=== PATIENT | female | born 1990 | race Caucasian/White ===

== ENCOUNTER 2017-06-01 17:39 | Inpatient (IN) | payer MEDICARE, MEDICAID ==
[2017-06-01] MEDS ORDERED: Dextrose 50% SYRINGE Inj (50 ml) ONE ×4 (18:00→21:49)
[2017-06-01] MEDS ORDERED: Dextrose 50% SYRINGE Inj (50 ml) IVP STA (18:10)
[2017-06-01] MEDS ORDERED: Dextrose 5%/0.33% NS 1,000 ML IV ONE (18:14)
[2017-06-01 18:29] LABS: BASO % 0.1 % (0.0-2.0); HEMATOCRIT 33.9 % (34.0-47.0); LYMPH # 1.3 K/uL (1.0-4.3); LYMPH % 5.9 % (20.0-40.0); MEAN CELL VOLUME 75.6 fL (81.0-99.0); MEAN CORPUSCULAR HEMOGLOBIN 23.4 pg (27.0-31.0); MEAN CORPUSCULAR HGB CONC 30.9 g/dL (33.0-37.0); MEAN PLATELET VOLUME 8.4 fL (7.2-11.7); MONO # 1.1 K/uL (0.0-0.8); MONO % 5.1 % (0.0-10.0); PLATELET COUNT 354 K/uL (130-400); RED CELL DISTRIBUTION WIDTH 17.2 % (11.5-14.5); WHITE BLOOD COUNT 21.6 K/uL (4.8-10.8)
--- NOTE | 2017-06-01 18:37 | C.PDOC ---
History Of Present Illness 26 year old female with a history of diabetes and schizophrenia was brought to the ED by EMS after apparent suicide attempt prior to arrival. Patient was found unconscious by brother and a suicide note was written addressed to mother. Upon EMS arrival, patient's sugar was checked and found to be very low. Patient was given amp of D50 by EMS, blood pressure remained low and second amp of D50 was given. Bilateral nasal trumpets were inserted by EMS and patient is tolerating. Mother notes patient has had multiple suicide attempts in the past and follows up with [facility] [place]. ROS limited due to patient's clinical condition. Time Seen by Provider: 06/01/17 17:53 Chief Complaint (Nursing): Psychiatric Evaluation History Per: EMS, Family (brother and brother ) History/Exam Limitations: no limitations Onset/Duration Of Symptoms: Hrs Current Symptoms Are (Timing): Still Present Suicide/Self Injury Attempted (Context): Ingestion, Other (mother notes history of attempts but did not specify method ) Past Medical History Vital Signs: Last Vital Signs Temp 98.8 F 06/01/17 18:13 Pulse 110 H 06/01/17 18:13 Resp 20 06/01/17 18:13 BP 108/59 L 06/01/17 18:13 Pulse Ox 96 06/01/17 19:02 - Medical History PMH: Anxiety, Depression, HTN, Schizophrenia Family History: States: No Known Family Hx - Social History Hx Alcohol Use: No Hx Substance Use: No Review Of Systems Review Of Systems: ROS cannot be obtained secondary to pt's inabilty to answer questions. (patient is not answering question) Physical Exam - Physical Exam Appears: Non-toxic, No Acute Distress, Other (Patient is responsive to noxious stimuli only. She is not answering questions but does withdraw in pain. ) Skin: Warm, Dry Head: Atraumatic, Normacephalic Eye(s): bilateral: PERRL, Other (conjunctiva injection ) Oral Mucosa: Moist Neck: Supple Chest: Symmetrical, No Deformity Cardiovascular: Rhythm Regular, No Murmur Respiratory: Normal Breath Sounds, No Rales, No Rhonchi, No Wheezing, Other ( Patient has bilateral nasal trumpets in place from EMS placement ) Gastrointestinal/Abdominal: Soft, No Tenderness, No Distention, No Guarding, No Rebound, Other (abdomen obese ) ED Course And Treatment - Laboratory Results Result Diagrams: 06/01/17 18:18 ECG: Interpreted By Me, Viewed By Me O2 Sat by Pulse Oximetry: 96 (room air ) Progress Note: EKG, UA, and blood work were ordered. Patient was given dextrose and D5NS. Pending ICU re-evaluation. Disposition - Disposition Disposition: HOSPITALIZED Disposition Time: 19:03 Condition: SERIOUS - Clinical Impression Clinical Impression: Suicidal intent, Hypoglycemia, Schizophrenia - Scribe Statement The provider has reviewed the documentation as recorded by the Scribe Sophie Villa All medical record entries made by the Scribe were at my direction and personally dictated by me. I have reviewed the chart and agree that the record accurately reflects my personal performance of the history, physical exam, medical decision making, and the department course for this patient. I have also personally directed, reviewed, and agree with the discharge instructions and disposition. Decision To Admit - Pt Status Changed To: Hospital Disposition Of: Inpatient - Admit Certification Admit to Inpatient:: After my assessment, the patient will require hospitalization for at least two midnights. This is because of the severity of symptoms shown, intensity of services needed, and/or the medical risk in this patient being treated as an outpatient. - InPatient: Physician Admission Certification: I certify that this patient requires 2 or more midnights of care for the following reason:: insuline OD - . Bed Request Type: ICU Admitting Physician: Nabeel Neumann Patient Diagnosis: Suicidal intent, Hypoglycemia, Schizophrenia
[2017-06-01 18:41] LABS: CHLORIDE 105 mmol/L (98-107); URINE BILIRUBIN NEGATIVE (NEGATIVE); URINE BLOOD NEGATIVE (NEGATIVE); URINE COLOR Straw (YELLOW); URINE GLUCOSE (UA) 1+ mg/dL (Normal); URINE KETONE NEGATIVE (NEGATIVE); URINE LEUKOCYTE ESTERASE NEG Leu/uL (Negative); URINE PROTEIN NEGATIVE (NEGATIVE); URINE UROBILINOGEN NORMAL mg/dL (0.2-1.0)
[2017-06-01 18:42] LABS: POTASSIUM 2.9 mmol/L (3.6-5.2); SODIUM 139 mmol/L (132-148)
[2017-06-01 18:44] LABS: GFR AFRICAN-AMERICAN > 60
[2017-06-01 18:45] LABS: ALB/GLOB RATIO 1.6 (1.0-2.1); ALKALINE PHOSPHATASE 63 U/L (38-126); ALT/SGPT 16 U/L (9-52); AST/SGOT 30 U/L (14-36); BILIRUBIN,TOTAL 0.6 mg/dL (0.2-1.3); BLOOD UREA NITROGEN 10 mg/dL (7-17); CALCIUM 9.7 mg/dl (8.6-10.4); CARBON DIOXIDE 22 mmol/L (22-30); GLUCOSE,RANDOM 137 mg/dL (65-105); TOTAL PROTEIN 6.7 g/dL (6.3-8.3)
[2017-06-01 18:46] LABS: ALCOHOL SERUM < 10 mg/dl (0-10)
[2017-06-01 18:59] LABS: NEUTROPHIL 89 % (50-75); TOTAL CELLS COUNTED 100
[2017-06-01 19:01] LABS: LARGE PLATELETS PRESENT
[2017-06-01] MEDS ORDERED: Dextrose 50% SYRINGE Inj (50 ml) IV STA ×3 (19:09→21:48)
[2017-06-01] MEDS ORDERED: POTASSIUM CHLORIDE IV SCH ×2 (21:05→21:49)
[2017-06-01] MEDS ORDERED: DEXTROSE 10% IV SCH ×2 (21:05→21:49)
[2017-06-01] MEDS ORDERED: WATER IV SCH ×2 (21:05→21:49)
--- NOTE | 2017-06-01 21:27 | CP.PCM.CON ---
History of Present Illness - History of Present Illness History of Present Illness: 26 F brought in ER as found in by family around 5:30 pm lethargic, with suicidal note, patient was hypoglycemic in the field, has taken insulin in the past and multiple suicidal attempts and usually [place] [facility] In [place] frequent episode of hypoglycemia needing d50 despite being on d5 drip. Patient at time of eval fsbs was 39mg/dl was arousable with sternal rub, post d50 1 amp, patient would open eyes upon calling her name but would not tell how much insulin and at what johanna was taken, and any thing else consumed. Urine tox negative, qt is prolonged to 499ms, potassium 2.9. Mother present at bedside was providing information above and beneath. PMH as above schizophrenia, suicidal attempts, iddm PSH none Meds still need to confirm type of insulin Allergies NKDA Family history not contributory Review of Systems - Review of Systems Systems not reviewed;Unavailable: Altered Mental Status All systems: reviewed and no additional remarkable complaints except (HPI) Past Patient History - Past Social History Smoking Status: Light Smoker < 10 Cigarettes Daily Alcohol: None (as per mother) Drugs: Denies (as pre mother) Home Situation {Lives}: With Family - CARDIAC Hx Hypertension: Yes - ENDOCRINE/METABOLIC Hx Diabetes Mellitus Type 2: Yes - PSYCHIATRIC Hx Anxiety: Yes Hx Depression: Yes Hx Schizophrenia: Yes Hx Substance Use: No Meds Allergies/Adverse Reactions: Allergies Allergy/AdvReac Type Severity Reaction Status Date / Time Unobtainable Allergy Verified 06/01/17 17:46 - Medications Medications: Current Medications Heparin Sodium (Porcine) (Heparin) 5,000 units SC Q8 STEPHANIE Dextrose/Sodium Chloride (Dextrose 5%/0.33% Ns 1000 Ml) 1,000 mls @ 100 mls/hr IV .Q10H ONE Stop: 06/02/17 04:13 Last Admin: 06/01/17 18:44 Dose: 100 mls/hr Potassium Chloride 50 meq/ (Dextrose) 1,025 mls @ 100 mls/hr IV .[id number] STEPHANIE Pantoprazole Sodium (Protonix Inj) 40 mg IVP DAILY STEPHANIE Physical Exam - Additional Findings Additional findings: * HEENT TIFFANIE, but low reacting b/l * Neck Supple * Chest Clear b/l * CVS regular, no gallop or rub * PA soft nt, bs present, slight suprapubic fullness * Ext no edema * [employer] arousable but lethargic, especially when glucose low, but talks briefly when glucose improve, so clinically not in seizure or post ictal at time of assessment. * Skin normal turgor * Results - Vital Signs Recent Vital Signs: Last Vital Signs Temp 98.8 F 06/01/17 18:13 Pulse 85 06/01/17 20:21 Resp 18 06/01/17 20:21 BP 101/48 L 06/01/17 20:21 Pulse Ox 98 06/01/17 20:21 - Labs Result Diagrams: 06/01/17 18:18 06/01/17 18:18 Labs: Laboratory Results - last 24 hr 06/01/17 06/01/17 06/01/17 19:04 19:43 20:39 POC Glucose (mg/dL) 49 L 104 153 H Assessment & Plan - Assessment and Plan (Free Text) Assessment: * Suicidal attempt by taking insulin with hypoglycemia, supplemental glucose being adjusted, lethargic but maintaining airway, not post ictal at time of current eval. * Hypokalemia due to insulin, potassium will be supplemented, will check mag levels * Prolonged qt due to above * H/o prior suicidal attempts in similar way, h/o schizophrenia Plan: * Maintain euglycemia, spo2 above 90% * supplement and maintain electrolytes * Aspiration/seizure precautions * 1:1 observation * Psych eval one more awake * GI/DVT prophylaxis * See orders for detail.
[2017-06-01] MEDS: Magnesium Sulfate 1 gm in D5W 1 GM/100 ML BAG IVPB SCH (23:55)
[2017-06-02] MEDS: Magnesium Sulfate 1 gm in D5W 1 GM/100 ML BAG IVPB SCH (00:15)
[2017-06-02] MEDS: Potassium Chloride 20 mEq ER Tab PO SCH ×2 (01:12→05:15)
[2017-06-02 05:55] LABS: BASO % 0.2 % (0.0-2.0); EOS % 0.1 % (0.0-4.0); HEMATOCRIT 35.4 % (34.0-47.0); LYMPH # 1.9 K/uL (1.0-4.3); LYMPH % 9.5 % (20.0-40.0); MEAN CELL VOLUME 75.8 fL (81.0-99.0); MEAN CORPUSCULAR HEMOGLOBIN 23.6 pg (27.0-31.0); MEAN CORPUSCULAR HGB CONC 31.2 g/dL (33.0-37.0); MEAN PLATELET VOLUME 8.4 fL (7.2-11.7); PLATELET COUNT 339 K/uL (130-400); RED CELL DISTRIBUTION WIDTH 17.8 % (11.5-14.5); WHITE BLOOD COUNT 20.2 K/uL (4.8-10.8)
[2017-06-02 06:17] LABS: ALB/GLOB RATIO 1.4 (1.0-2.1); ALKALINE PHOSPHATASE 61 U/L (38-126); ALT/SGPT 21 U/L (9-52); AST/SGOT 28 U/L (14-36); BILIRUBIN,TOTAL 0.5 mg/dL (0.2-1.3); BLOOD UREA NITROGEN 6 mg/dL (7-17); CARBON DIOXIDE 22 mmol/L (22-30); CHLORIDE 102 mmol/L (98-107); GFR AFRICAN-AMERICAN > 60; GLUCOSE,RANDOM 206 mg/dL (65-105); MAGNESIUM 1.9 mg/dL (1.6-2.3); POTASSIUM 4.2 mmol/L (3.6-5.2); SODIUM 136 mmol/L (132-148); TOTAL PROTEIN 6.2 g/dL (6.3-8.3)
[2017-06-02 09:50] LABS: TOTAL CELLS COUNTED 100
[2017-06-02 09:51] LABS: NEUTROPHIL 85 % (50-75)
[2017-06-02 09:53] LABS: LARGE PLATELETS PRESENT
--- NOTE | 2017-06-02 13:24 | PCM.PSYCH ---
Initial Psychiatric Evaluation - Initial Psychiatric Evaluation Type of Admission: Voluntary Legal Status: Capacity Chief Complaint (in patient's own words): I tried to kill myself. History of Present Illness and Precipitating Events: Patient is a 26 years old [place] female, who is unemployed and lives with parents, with a long history of schizophrenia, was escorted to the ED after a suicidal attempt. Patient was found unconscious by brother and a suicide note was written addressed to mother. Upon EMS arrival, patient's sugar was checked and found to be very low. Patient was given amp of D50 by EMS, blood pressure remained low and second amp of D50 was given. After coming to consciousness patient admitted that she injected insulin to kill herself. Patient reports History of schizophrenia, and reports that she was recently [place] [facility]. She is partially compliant with her medications. She remained disheveled, paranoid and superficially cooperative. She reports depressed mood, and poor sleep. However she remained guarded about further details and demanded to be discharged. Patient refused to answer any further questions and demanded to be discharged. However she denies any drinking or any substance abuse. Past medical history DM Current Medications: Active Medications Generic Name Dose Route Start Last Admin Trade Name Freq PRN Reason Stop Dose Admin Heparin Sodium (Porcine) 5,000 units 06/01/17 22:00 06/02/17 06:01 Heparin SC 5,000 units Q8 STEPHANIE Administration Dextrose 1,000 mls @ 60 mls/hr 06/02/17 09:09 06/02/17 09:26 Dextrose 10% In Water IV 60 mls/hr .[id number] STEPHANIE Administration Pantoprazole Sodium 40 mg 06/02/17 10:00 06/02/17 09:27 Protonix Inj IVP 40 mg DAILY STEPHANIE Administration Past Psychiatric History - Past Psychiatric History Previous Treatment History: Inpatient Pertinent Medical Hx (Current Medical&Sleep Prob, Allergies): Allergies Allergy/AdvReac Type Severity Reaction Status Date / Time Unobtainable Allergy Verified 06/01/17 17:46 Benztropine [Benztropine Mesylate] 2 mg PO BID 06/01/17 Citalopram Hydrobromide [Citalopram HBr] 40 mg PO DAILY 06/01/17 Clonazepam [Klonopin] 1 mg PO PRN PRN 06/01/17 Lisinopril 2.5 mg PO DAILY 06/01/17 Metformin HCl [Metformin HCl ER] 1,000 mg PO BID 06/01/17 Omeprazole 40 mg PO DAILY 06/01/17 Perphenazine 4 mg PO DAILY 06/01/17 Quetiapine Fumarate 400 mg PO HS 06/01/17 Review of Systems - Review of Systems All systems: reviewed and no additional remarkable complaints except - Psychiatric Psychiatric: Anxiety, Irritability Mental Status Examination - Personal Presentation Personal Presentation: Looks stated age - Affect Affect: Constricted, Blunted - Motor Activity Motor Activity: Psychomotor Retardation - Reliability in Providing Information Reliability in Providing Information: Poor, due to alteration in thoughts, Poor , due to altered mood - Speech Speech: Organized - Mood Mood: Depressed, Anxious - Obsessions/Compulsions Obsessions: No Compulsions: No - Cognitive Functions Orientation: Person, Place, Situation, Time Sensorium: Alert Attention/Concentration: Attentive Abstract Thinking: Dawes Estimate of Intelligence: Below average Judgement: Imparied, as evidence by: Poor judgement, Imparied, as evidence by: Lack of insight into illness - Risk Risk: Suicidal, Diminished functioning - Strength & Assets Inventory Strength & Assets Inventory: Family support DSM 5 DX - DSM 5 DSM 5 Diagnosis: schizoaffective disorder depressed type - Recommended/Plan of Treatment Treatment Recommendations and Plan of Treatment: Schizoaffective disorder depressed type continue patient's medications Perphenazine 4 mg PO QDaily Celexa 40 mg PO Daily Seroquel 400 mg po QHS called [facility] for [place] commitment - Smoking Cessation Smoking Cessation Initiated: No
--- NOTE | 2017-06-02 14:30 | CP.CCUPN ---
CCU Subjective - Physician Review Events Since Last Encounter (Free Text): 06/02/17 14:26 alert and oriented, feels better. CCU Objective - Vital Signs / Intake & Output Vital Signs (Last 4 hours): Vital Signs Temp Pulse Resp BP Pulse Ox 06/02/17 12:05 109 H 19 98 06/02/17 12:00 98.0 F 100 06/02/17 11:20 105 H 27 H 111/64 100 06/02/17 11:00 92 H 24 Intake and Output (Last 8hrs): Intake & Output 06/01/17 06/02/17 06/02/17 22:59 06:59 14:59 Intake Total 1970 1230 Output Total 1750 1250 1200 Balance -1750 720 30 Weight 195 lb Intake: Intake, IV Amount 1600 780 Left Antecubital 1400 780 Right Wrist 200 Oral 370 450 Output: Urine 1750 1250 1200 Urethral (Turner) 1250 1200 Stool 0 0 Emesis 0 Other: Voiding Method Indwelling Catheter # Bowel Movements 0 - Physical Exam Head: Positive for: Atraumatic, Normocephalic Pupils: Positive for: PERRL Extroacular Muscles: Positive for: EOMI Conjunctiva: Positive for: Normal Mouth: Positive for: Moist Mucous Membranes Neck: Positive for: Normal Range of Motion Respiratory/Chest: Positive for: Clear to Auscultation, Good Air Exchange. Negative for: Respiratory Distress Cardiovascular: Positive for: Regular Rate and Rhythm, Normal S1, S2. Negative for: Murmurs Abdomen: Positive for: Normal Bowel Sounds. Negative for: Tenderness, Distention Neurological: Positive for: GCS=15, CN II-XII Intact, Speech Normal Psychiatric: Positive for: Alert, Oriented x 3 - Medications Active Medications: Active Medications Generic Name Dose Route Start Last Admin Trade Name Freq PRN Reason Stop Dose Admin Benztropine Mesylate 2 mg 06/02/17 18:00 Cogentin PO BID STEPHANIE Citalopram Hydrobromide 40 mg 06/02/17 14:30 Celexa PO DAILY STEPHANIE Clonazepam 1 mg 06/02/17 18:00 Klonopin PO BID STEPHANIE Heparin Sodium (Porcine) 5,000 units 06/01/17 22:00 06/02/17 06:01 Heparin SC 5,000 units Q8 STEPHANIE Administration Dextrose 1,000 mls @ 60 mls/hr 06/02/17 09:09 09/17/17 09:26 Dextrose 10% In Water IV 60 mls/hr .[id number] STEPHANIE Administration Pantoprazole Sodium 40 mg 06/02/17 10:00 06/02/17 09:27 Protonix Inj IVP 40 mg DAILY STEPHANIE Administration Perphenazine 4 mg 06/02/17 13:30 Perphenazine PO DAILY STEPHANIE Quetiapine Fumarate 400 mg 06/02/17 22:00 Seroquel PO HS STEPHANIE - Patient Studies Lab Studies: Lab Studies 06/02/17 06/02/17 06/02/17 Range/Units 13:58 13:02 12:08 WBC (4.8-10.8) K/uL RBC (3.80-5.20) Mil/uL Hgb (11.0-16.0) g/dL Hct (34.0-47.0) % MCV (81.0-99.0) fL MCH (27.0-31.0) pg MCHC (33.0-37.0) g/dL RDW (11.5-14.5) % Plt Count (130-400) K/uL MPV (7.2-11.7) fL Neut % (Auto) (50.0-75.0) % Lymph % (Auto) (20.0-40.0) % Cochran % (Auto) (0.0-10.0) % Eos % (Auto) (0.0-4.0) % Baso % (Auto) (0.0-2.0) % Neut # (1.8-7.0) K/uL Lymph # (1.0-4.3) K/uL Cochran # (0.0-0.8) K/uL Eos # (0.0-0.7) K/uL Baso # (0.0-0.2) K/uL Neutrophils % (Manual) (50-75) % Band Neutrophils % (0-2) % Lymphocytes % (Manual) (20-40) % Monocytes % (Manual) (0-10) % Platelet Estimate (NORMAL) Large Platelets Polychromasia Hypochromasia (manual) Poikilocytosis (manual Anisocytosis (manual) Microcytosis (manual) Ovalocytes Schistocytes Sodium (132-148) mmol/L Potassium (3.6-5.2) mmol/L Chloride (98-107) mmol/L Carbon Dioxide (22-30) mmol/L Anion Gap (10-20) BUN (7-17) mg/dL Creatinine (0.7-1.2) MG/DL Est GFR ( Amer) Est GFR (Non-Af Amer) POC Glucose (mg/dL) 134 H 151 H 188 H (65-110) mg/dL Random Glucose (65-105) mg/dL Calcium (8.6-10.4) mg/dl Magnesium (1.6-2.3) mg/dL Total Bilirubin (0.2-1.3) mg/dL AST (14-36) U/L ALT (9-52) U/L Alkaline Phosphatase (38-126) U/L Total Protein (6.3-8.3) g/dL Albumin (3.5-5.0) g/dL Globulin (2.2-3.9) gm/dL Albumin/Globulin Ratio (1.0-2.1) 06/02/17 06/02/17 06/02/17 Range/Units 10:52 09:48 09:03 WBC (4.8-10.8) K/uL RBC (3.80-5.20) Mil/uL Hgb (11.0-16.0) g/dL Hct (34.0-47.0) % MCV (81.0-99.0) fL MCH (27.0-31.0) pg MCHC (33.0-37.0) g/dL RDW (11.5-14.5) % Plt Count (130-400) K/uL MPV (7.2-11.7) fL Neut % (Auto) (50.0-75.0) % Lymph % (Auto) (20.0-40.0) % Cochran % (Auto) (0.0-10.0) % Eos % (Auto) (0.0-4.0) % Baso % (Auto) (0.0-2.0) % Neut # (1.8-7.0) K/uL Lymph # (1.0-4.3) K/uL Cochran # (0.0-0.8) K/uL Eos # (0.0-0.7) K/uL Baso # (0.0-0.2) K/uL Neutrophils % (Manual) (50-75) % Band Neutrophils % (0-2) % Lymphocytes % (Manual) (20-40) % Monocytes % (Manual) (0-10) % Platelet Estimate (NORMAL) Large Platelets Polychromasia Hypochromasia (manual) Poikilocytosis (manual Anisocytosis (manual) Microcytosis (manual) Ovalocytes Schistocytes Sodium (132-148) mmol/L Potassium (3.6-5.2) mmol/L Chloride (98-107) mmol/L Carbon Dioxide (22-30) mmol/L Anion Gap (10-20) BUN (7-17) mg/dL Creatinine (0.7-1.2) MG/DL Est GFR ( Amer) Est GFR (Non-Af Amer) POC Glucose (mg/dL) 240 H 281 H 252 H (65-110) mg/dL Random Glucose (65-105) mg/dL Calcium (8.6-10.4) mg/dl Magnesium (1.6-2.3) mg/dL Total Bilirubin (0.2-1.3) mg/dL AST (14-36) U/L ALT (9-52) U/L Alkaline Phosphatase (38-126) U/L Total Protein (6.3-8.3) g/dL Albumin (3.5-5.0) g/dL Globulin (2.2-3.9) gm/dL Albumin/Globulin Ratio (1.0-2.1) 06/02/17 06/02/17 06/02/17 Range/Units 07:59 07:15 05:52 WBC (4.8-10.8) K/uL RBC (3.80-5.20) Mil/uL Hgb (11.0-16.0) g/dL Hct (34.0-47.0) % MCV (81.0-99.0) fL MCH (27.0-31.0) pg MCHC (33.0-37.0) g/dL RDW (11.5-14.5) % Plt Count (130-400) K/uL MPV (7.2-11.7) fL Neut % (Auto) (50.0-75.0) % Lymph % (Auto) (20.0-40.0) % Cochran % (Auto) (0.0-10.0) % Eos % (Auto) (0.0-4.0) % Baso % (Auto) (0.0-2.0) % Neut # (1.8-7.0) K/uL Lymph # (1.0-4.3) K/uL Cochran # (0.0-0.8) K/uL Eos # (0.0-0.7) K/uL Baso # (0.0-0.2) K/uL Neutrophils % (Manual) (50-75) % Band Neutrophils % (0-2) % Lymphocytes % (Manual) (20-40) % Monocytes % (Manual) (0-10) % Platelet Estimate (NORMAL) Large Platelets Polychromasia Hypochromasia (manual) Poikilocytosis (manual Anisocytosis (manual) Microcytosis (manual) Ovalocytes Schistocytes Sodium 136 (132-148) mmol/L Potassium 4.2 (3.6-5.2) mmol/L Chloride 102 (98-107) mmol/L Carbon Dioxide 22 (22-30) mmol/L Anion Gap 16 (10-20) BUN 6 L (7-17) mg/dL Creatinine 0.5 L (0.7-1.2) MG/DL Est GFR ( Amer) > 60 Est GFR (Non-Af Amer) > 60 POC Glucose (mg/dL) 231 H 256 H (65-110) mg/dL Random Glucose 206 H (65-105) mg/dL Calcium 9.0 (8.6-10.4) mg/dl Magnesium 1.9 (1.6-2.3) mg/dL Total Bilirubin 0.5 (0.2-1.3) mg/dL AST 28 (14-36) U/L ALT 21 (9-52) U/L Alkaline Phosphatase 61 (38-126) U/L Total Protein 6.2 L (6.3-8.3) g/dL Albumin 3.6 (3.5-5.0) g/dL Globulin 2.6 (2.2-3.9) gm/dL Albumin/Globulin Ratio 1.4 (1.0-2.1) 06/02/17 06/02/17 06/02/17 Range/Units 05:52 05:05 04:02 WBC 20.2 H (4.8-10.8) K/uL RBC 4.67 (3.80-5.20) Mil/uL Hgb 11.0 (11.0-16.0) g/dL Hct 35.4 (34.0-47.0) % MCV 75.8 L (81.0-99.0) fL MCH 23.6 L (27.0-31.0) pg MCHC 31.2 L (33.0-37.0) g/dL RDW 17.8 H (11.5-14.5) % Plt Count 339 (130-400) K/uL MPV 8.4 (7.2-11.7) fL Neut % (Auto) 85.2 H (50.0-75.0) % Lymph % (Auto) 9.5 L (20.0-40.0) % Cochran % (Auto) 5.0 (0.0-10.0) % Eos % (Auto) 0.1 (0.0-4.0) % Baso % (Auto) 0.2 (0.0-2.0) % Neut # 17.3 H (1.8-7.0) K/uL Lymph # 1.9 (1.0-4.3) K/uL Cochran # 1.0 H (0.0-0.8) K/uL Eos # 0.0 (0.0-0.7) K/uL Baso # 0.0 (0.0-0.2) K/uL Neutrophils % (Manual) 85 H (50-75) % Band Neutrophils % 1 (0-2) % Lymphocytes % (Manual) 10 L (20-40) % Monocytes % (Manual) 4 (0-10) % Platelet Estimate Normal (NORMAL) Large Platelets Present Polychromasia Slight Hypochromasia (manual) Slight Poikilocytosis (manual Slight Anisocytosis (manual) Slight Microcytosis (manual) Slight Ovalocytes Slight Schistocytes Slight Sodium (132-148) mmol/L Potassium (3.6-5.2) mmol/L Chloride (98-107) mmol/L Carbon Dioxide (22-30) mmol/L Anion Gap (10-20) BUN (7-17) mg/dL Creatinine (0.7-1.2) MG/DL Est GFR ( Amer) Est GFR (Non-Af Amer) POC Glucose (mg/dL) 218 H 179 H (65-110) mg/dL Random Glucose (65-105) mg/dL Calcium (8.6-10.4) mg/dl Magnesium (1.6-2.3) mg/dL Total Bilirubin (0.2-1.3) mg/dL AST (14-36) U/L ALT (9-52) U/L Alkaline Phosphatase (38-126) U/L Total Protein (6.3-8.3) g/dL Albumin (3.5-5.0) g/dL Globulin (2.2-3.9) gm/dL Albumin/Globulin Ratio (1.0-2.1) 06/02/17 06/02/17 06/02/17 Range/Units 03:10 02:20 01:17 WBC (4.8-10.8) K/uL RBC (3.80-5.20) Mil/uL Hgb (11.0-16.0) g/dL Hct (34.0-47.0) % MCV (81.0-99.0) fL MCH (27.0-31.0) pg MCHC (33.0-37.0) g/dL RDW (11.5-14.5) % Plt Count (130-400) K/uL MPV (7.2-11.7) fL Neut % (Auto) (50.0-75.0) % Lymph % (Auto) (20.0-40.0) % Cochran % (Auto) (0.0-10.0) % Eos % (Auto) (0.0-4.0) % Baso % (Auto) (0.0-2.0) % Neut # (1.8-7.0) K/uL Lymph # (1.0-4.3) K/uL Cochran # (0.0-0.8) K/uL Eos # (0.0-0.7) K/uL Baso # (0.0-0.2) K/uL Neutrophils % (Manual) (50-75) % Band Neutrophils % (0-2) % Lymphocytes % (Manual) (20-40) % Monocytes % (Manual) (0-10) % Platelet Estimate (NORMAL) Large Platelets Polychromasia Hypochromasia (manual) Poikilocytosis (manual Anisocytosis (manual) Microcytosis (manual) Ovalocytes Schistocytes Sodium (132-148) mmol/L Potassium (3.6-5.2) mmol/L Chloride (98-107) mmol/L Carbon Dioxide (22-30) mmol/L Anion Gap (10-20) BUN (7-17) mg/dL Creatinine (0.7-1.2) MG/DL Est GFR ( Amer) Est GFR (Non-Af Amer) POC Glucose (mg/dL) 172 H 172 H 174 H (65-110) mg/dL Random Glucose (65-105) mg/dL Calcium (8.6-10.4) mg/dl Magnesium (1.6-2.3) mg/dL Total Bilirubin (0.2-1.3) mg/dL AST (14-36) U/L ALT (9-52) U/L Alkaline Phosphatase (38-126) U/L Total Protein (6.3-8.3) g/dL Albumin (3.5-5.0) g/dL Globulin (2.2-3.9) gm/dL Albumin/Globulin Ratio (1.0-2.1) 06/01/17 06/01/17 06/01/17 Range/Units 23:35 22:27 22:25 WBC (4.8-10.8) K/uL RBC (3.80-5.20) Mil/uL Hgb (11.0-16.0) g/dL Hct (34.0-47.0) % MCV (81.0-99.0) fL MCH (27.0-31.0) pg MCHC (33.0-37.0) g/dL RDW (11.5-14.5) % Plt Count (130-400) K/uL MPV (7.2-11.7) fL Neut % (Auto) (50.0-75.0) % Lymph % (Auto) (20.0-40.0) % Cochran % (Auto) (0.0-10.0) % Eos % (Auto) (0.0-4.0) % Baso % (Auto) (0.0-2.0) % Neut # (1.8-7.0) K/uL Lymph # (1.0-4.3) K/uL Cochran # (0.0-0.8) K/uL Eos # (0.0-0.7) K/uL Baso # (0.0-0.2) K/uL Neutrophils % (Manual) (50-75) % Band Neutrophils % (0-2) % Lymphocytes % (Manual) (20-40) % Monocytes % (Manual) (0-10) % Platelet Estimate (NORMAL) Large Platelets Polychromasia Hypochromasia (manual) Poikilocytosis (manual Anisocytosis (manual) Microcytosis (manual) Ovalocytes Schistocytes Sodium (132-148) mmol/L Potassium (3.6-5.2) mmol/L Chloride (98-107) mmol/L Carbon Dioxide (22-30) mmol/L Anion Gap (10-20) BUN (7-17) mg/dL Creatinine (0.7-1.2) MG/DL Est GFR ( Amer) Est GFR (Non-Af Amer) POC Glucose (mg/dL) 91 147 H (65-110) mg/dL Random Glucose (65-105) mg/dL Calcium (8.6-10.4) mg/dl Magnesium 1.2 L (1.6-2.3) mg/dL Total Bilirubin (0.2-1.3) mg/dL AST (14-36) U/L ALT (9-52) U/L Alkaline Phosphatase (38-126) U/L Total Protein (6.3-8.3) g/dL Albumin (3.5-5.0) g/dL Globulin (2.2-3.9) gm/dL Albumin/Globulin Ratio (1.0-2.1) 06/01/17 06/01/17 06/01/17 Range/Units 21:50 21:19 20:39 WBC (4.8-10.8) K/uL RBC (3.80-5.20) Mil/uL Hgb (11.0-16.0) g/dL Hct (34.0-47.0) % MCV (81.0-99.0) fL MCH (27.0-31.0) pg MCHC (33.0-37.0) g/dL RDW (11.5-14.5) % Plt Count (130-400) K/uL MPV (7.2-11.7) fL Neut % (Auto) (50.0-75.0) % Lymph % (Auto) (20.0-40.0) % Cochran % (Auto) (0.0-10.0) % Eos % (Auto) (0.0-4.0) % Baso % (Auto) (0.0-2.0) % Neut # (1.8-7.0) K/uL Lymph # (1.0-4.3) K/uL Cochran # (0.0-0.8) K/uL Eos # (0.0-0.7) K/uL Baso # (0.0-0.2) K/uL Neutrophils % (Manual) (50-75) % Band Neutrophils % (0-2) % Lymphocytes % (Manual) (20-40) % Monocytes % (Manual) (0-10) % Platelet Estimate (NORMAL) Large Platelets Polychromasia Hypochromasia (manual) Poikilocytosis (manual Anisocytosis (manual) Microcytosis (manual) Ovalocytes Schistocytes Sodium (132-148) mmol/L Potassium (3.6-5.2) mmol/L Chloride (98-107) mmol/L Carbon Dioxide (22-30) mmol/L Anion Gap (10-20) BUN (7-17) mg/dL Creatinine (0.7-1.2) MG/DL Est GFR ( Amer) Est GFR (Non-Af Amer) POC Glucose (mg/dL) 48 L 87 153 H (65-110) mg/dL Random Glucose (65-105) mg/dL Calcium (8.6-10.4) mg/dl Magnesium (1.6-2.3) mg/dL Total Bilirubin (0.2-1.3) mg/dL AST (14-36) U/L ALT (9-52) U/L Alkaline Phosphatase (38-126) U/L Total Protein (6.3-8.3) g/dL Albumin (3.5-5.0) g/dL Globulin (2.2-3.9) gm/dL Albumin/Globulin Ratio (1.0-2.1) 06/01/17 06/01/17 Range/Units 19:43 19:04 WBC (4.8-10.8) K/uL RBC (3.80-5.20) Mil/uL Hgb (11.0-16.0) g/dL Hct (34.0-47.0) % MCV (81.0-99.0) fL MCH (27.0-31.0) pg MCHC (33.0-37.0) g/dL RDW (11.5-14.5) % Plt Count (130-400) K/uL MPV (7.2-11.7) fL Neut % (Auto) (50.0-75.0) % Lymph % (Auto) (20.0-40.0) % Cochran % (Auto) (0.0-10.0) % Eos % (Auto) (0.0-4.0) % Baso % (Auto) (0.0-2.0) % Neut # (1.8-7.0) K/uL Lymph # (1.0-4.3) K/uL Cochran # (0.0-0.8) K/uL Eos # (0.0-0.7) K/uL Baso # (0.0-0.2) K/uL Neutrophils % (Manual) (50-75) % Band Neutrophils % (0-2) % Lymphocytes % (Manual) (20-40) % Monocytes % (Manual) (0-10) % Platelet Estimate (NORMAL) Large Platelets Polychromasia Hypochromasia (manual) Poikilocytosis (manual Anisocytosis (manual) Microcytosis (manual) Ovalocytes Schistocytes Sodium (132-148) mmol/L Potassium (3.6-5.2) mmol/L Chloride (98-107) mmol/L Carbon Dioxide (22-30) mmol/L Anion Gap (10-20) BUN (7-17) mg/dL Creatinine (0.7-1.2) MG/DL Est GFR ( Amer) Est GFR (Non-Af Amer) POC Glucose (mg/dL) 104 49 L (65-110) mg/dL Random Glucose (65-105) mg/dL Calcium (8.6-10.4) mg/dl Magnesium (1.6-2.3) mg/dL Total Bilirubin (0.2-1.3) mg/dL AST (14-36) U/L ALT (9-52) U/L Alkaline Phosphatase (38-126) U/L Total Protein (6.3-8.3) g/dL Albumin (3.5-5.0) g/dL Globulin (2.2-3.9) gm/dL Albumin/Globulin Ratio (1.0-2.1) Laboratory Results - last 24 hr 06/01/17 06/01/17 06/01/17 19:04 19:43 20:39 WBC RBC Hgb Hct MCV MCH MCHC RDW Plt Count MPV Neut % (Auto) Lymph % (Auto) Cochran % (Auto) Eos % (Auto) Baso % (Auto) Neut # Lymph # Cochran # Eos # Baso # Neutrophils % (Manual) Band Neutrophils % Lymphocytes % (Manual) Monocytes % (Manual) Platelet Estimate Large Platelets Polychromasia Hypochromasia (manual) Poikilocytosis (manual Anisocytosis (manual) Microcytosis (manual) Ovalocytes Schistocytes Sodium Potassium Chloride Carbon Dioxide Anion Gap BUN Creatinine Est GFR ( Amer) Est GFR (Non-Af Amer) POC Glucose (mg/dL) 49 L 104 153 H Random Glucose Calcium Magnesium Total Bilirubin AST ALT Alkaline Phosphatase Total Protein Albumin Globulin Albumin/Globulin Ratio 06/01/17 06/01/17 06/01/17 21:19 21:50 22:25 WBC RBC Hgb Hct MCV MCH MCHC RDW Plt Count MPV Neut % (Auto) Lymph % (Auto) Cochran % (Auto) Eos % (Auto) Baso % (Auto) Neut # Lymph # Cochran # Eos # Baso # Neutrophils % (Manual) Band Neutrophils % Lymphocytes % (Manual) Monocytes % (Manual) Platelet Estimate Large Platelets Polychromasia Hypochromasia (manual) Poikilocytosis (manual Anisocytosis (manual) Microcytosis (manual) Ovalocytes Schistocytes Sodium Potassium Chloride Carbon Dioxide Anion Gap BUN Creatinine Est GFR ( Amer) Est GFR (Non-Af Amer) POC Glucose (mg/dL) 87 48 L 147 H Random Glucose Calcium Magnesium Total Bilirubin AST ALT Alkaline Phosphatase Total Protein Albumin Globulin Albumin/Globulin Ratio 06/01/17 06/01/17 06/02/17 22:27 23:35 01:17 WBC RBC Hgb Hct MCV MCH MCHC RDW Plt Count MPV Neut % (Auto) Lymph % (Auto) Cochran % (Auto) Eos % (Auto) Baso % (Auto) Neut # Lymph # Cochran # Eos # Baso # Neutrophils % (Manual) Band Neutrophils % Lymphocytes % (Manual) Monocytes % (Manual) Platelet Estimate Large Platelets Polychromasia Hypochromasia (manual) Poikilocytosis (manual Anisocytosis (manual) Microcytosis (manual) Ovalocytes Schistocytes Sodium Potassium Chloride Carbon Dioxide Anion Gap BUN Creatinine Est GFR ( Amer) Est GFR (Non-Af Amer) POC Glucose (mg/dL) 91 174 H Random Glucose Calcium Magnesium 1.2 L Total Bilirubin AST ALT Alkaline Phosphatase Total Protein Albumin Globulin Albumin/Globulin Ratio 06/02/17 06/02/17 06/02/17 02:20 03:10 04:02 WBC RBC Hgb Hct MCV MCH MCHC RDW Plt Count MPV Neut % (Auto) Lymph % (Auto) Cochran % (Auto) Eos % (Auto) Baso % (Auto) Neut # Lymph # Cochran # Eos # Baso # Neutrophils % (Manual) Band Neutrophils % Lymphocytes % (Manual) Monocytes % (Manual) Platelet Estimate Large Platelets Polychromasia Hypochromasia (manual) Poikilocytosis (manual Anisocytosis (manual) Microcytosis (manual) Ovalocytes Schistocytes Sodium Potassium Chloride Carbon Dioxide Anion Gap BUN Creatinine Est GFR ( Amer) Est GFR (Non-Af Amer) POC Glucose (mg/dL) 172 H 172 H 179 H Random Glucose Calcium Magnesium Total Bilirubin AST ALT Alkaline Phosphatase Total Protein Albumin Globulin Albumin/Globulin Ratio 06/02/17 06/02/17 06/02/17 05:05 05:52 05:52 WBC 20.2 H RBC 4.67 Hgb 11.0 Hct 35.4 MCV 75.8 L MCH 23.6 L MCHC 31.2 L RDW 17.8 H Plt Count 339 MPV 8.4 Neut % (Auto) 85.2 H Lymph % (Auto) 9.5 L Cochran % (Auto) 5.0 Eos % (Auto) 0.1 Baso % (Auto) 0.2 Neut # 17.3 H Lymph # 1.9 Cochran # 1.0 H Eos # 0.0 Baso # 0.0 Neutrophils % (Manual) 85 H Band Neutrophils % 1 Lymphocytes % (Manual) 10 L Monocytes % (Manual) 4 Platelet Estimate Normal Large Platelets Present Polychromasia Slight Hypochromasia (manual) Slight Poikilocytosis (manual Slight Anisocytosis (manual) Slight Microcytosis (manual) Slight Ovalocytes Slight Schistocytes Slight Sodium 136 Potassium 4.2 Chloride 102 Carbon Dioxide 22 Anion Gap 16 BUN 6 L Creatinine 0.5 L Est GFR ( Amer) > 60 Est GFR (Non-Af Amer) > 60 POC Glucose (mg/dL) 218 H Random Glucose 206 H Calcium 9.0 Magnesium 1.9 Total Bilirubin 0.5 AST 28 ALT 21 Alkaline Phosphatase 61 Total Protein 6.2 L Albumin 3.6 Globulin 2.6 Albumin/Globulin Ratio 1.4 06/02/17 06/02/17 06/02/17 07:15 07:59 09:03 WBC RBC Hgb Hct MCV MCH MCHC RDW Plt Count MPV Neut % (Auto) Lymph % (Auto) Cochran % (Auto) Eos % (Auto) Baso % (Auto) Neut # Lymph # Cochran # Eos # Baso # Neutrophils % (Manual) Band Neutrophils % Lymphocytes % (Manual) Monocytes % (Manual) Platelet Estimate Large Platelets Polychromasia Hypochromasia (manual) Poikilocytosis (manual Anisocytosis (manual) Microcytosis (manual) Ovalocytes Schistocytes Sodium Potassium Chloride Carbon Dioxide Anion Gap BUN Creatinine Est GFR ( Amer) Est GFR (Non-Af Amer) POC Glucose (mg/dL) 256 H 231 H 252 H Random Glucose Calcium Magnesium Total Bilirubin AST ALT Alkaline Phosphatase Total Protein Albumin Globulin Albumin/Globulin Ratio 06/02/17 06/02/17 06/02/17 09:48 10:52 12:08 WBC RBC Hgb Hct MCV MCH MCHC RDW Plt Count MPV Neut % (Auto) Lymph % (Auto) Cochran % (Auto) Eos % (Auto) Baso % (Auto) Neut # Lymph # Cochran # Eos # Baso # Neutrophils % (Manual) Band Neutrophils % Lymphocytes % (Manual) Monocytes % (Manual) Platelet Estimate Large Platelets Polychromasia Hypochromasia (manual) Poikilocytosis (manual Anisocytosis (manual) Microcytosis (manual) Ovalocytes Schistocytes Sodium Potassium Chloride Carbon Dioxide Anion Gap BUN Creatinine Est GFR ( Amer) Est GFR (Non-Af Amer) POC Glucose (mg/dL) 281 H 240 H 188 H Random Glucose Calcium Magnesium Total Bilirubin AST ALT Alkaline Phosphatase Total Protein Albumin Globulin Albumin/Globulin Ratio 06/02/17 06/02/17 13:02 13:58 WBC RBC Hgb Hct MCV MCH MCHC RDW Plt Count MPV Neut % (Auto) Lymph % (Auto) Cochran % (Auto) Eos % (Auto) Baso % (Auto) Neut # Lymph # Cochran # Eos # Baso # Neutrophils % (Manual) Band Neutrophils % Lymphocytes % (Manual) Monocytes % (Manual) Platelet Estimate Large Platelets Polychromasia Hypochromasia (manual) Poikilocytosis (manual Anisocytosis (manual) Microcytosis (manual) Ovalocytes Schistocytes Sodium Potassium Chloride Carbon Dioxide Anion Gap BUN Creatinine Est GFR ( Amer) Est GFR (Non-Af Amer) POC Glucose (mg/dL) 151 H 134 H Random Glucose Calcium Magnesium Total Bilirubin AST ALT Alkaline Phosphatase Total Protein Albumin Globulin Albumin/Globulin Ratio EKG/Cardiology Studies: Cardiology / EKG Studies 06/02/17 08:00 EKG [ELECTROCARDIOGRAM] Routine Comment: Mode Of Transportation: Reason For Exam: prolonged qt Fingerstick Blood Sugar Results: 188 Review of Systems - Review of Systems All systems: reviewed and no additional remarkable complaints except (nothing) Critical Care Progress Note - Nutrition Nutrition: Nutrition Category Date Time Status Regular Diet [DIET] Diets 06/02/17 Breakfast Active Assessment/Plan (1) Suicidal intent Assessment and plan: 26 yo F. PMHx insulin dependent diabetes mellitus. p/w 4th suicide attempt via insulin overdose. Psych: psych consulted, patient will most likely need transfer to [facility] for inpatient psych. 1:1 observation. Neuro: alert and oriented x 3 Pulm: no acute issues CV: hemodynamically stable Hem: no acute issues Renal: no acute issues, urine output wnl. Endo: IDDM, fingersticks improving, now holding D10W. GI: regular diet ID: no acute issues, leukocytosis, no source of sepsis, assuming SIRS reaction currently. DVT proph - not currently indicated, patient may ambulate GI proph - not currently indicated Code status - full code Critical Care Time spent 35 minutes Multi-disciplinary rounds were performed with house staff, nursing, speech therapy, respiratory therapy, pharmacy and nutrition with integrated input from the primary team/attending and other consulting services. The documented time is cumulative and includes review of patient data/exams/labs/chart review and examination of the patient on rounds and throughout the day; time is exclusive of any procedures or teaching time. Current Visit: Yes Status: Acute
--- NOTE | 2017-06-02 15:39 | RAD ---
HISTORY: r/o aspiration COMPARISON: No prior. FINDINGS: LUNGS: No evidence of focal infiltrate or consolidation in the lungs. PLEURA: No significant pleural effusion identified, no pneumothorax apparent. CARDIOVASCULAR: Normal. OSSEOUS STRUCTURES: No significant abnormalities. VISUALIZED UPPER ABDOMEN: Normal. OTHER FINDINGS: None. IMPRESSION: No active disease.
[2017-06-03 06:11] LABS: BASO # 0.1 K/uL (0.0-0.2); BASO % 0.8 % (0.0-2.0); EOS # 0.2 K/uL (0.0-0.7); EOS % 1.7 % (0.0-4.0); HEMATOCRIT 34.6 % (34.0-47.0); LYMPH # 4.5 K/uL (1.0-4.3); LYMPH % 35.2 % (20.0-40.0); MEAN CORPUSCULAR HEMOGLOBIN 24.1 pg (27.0-31.0); MEAN CORPUSCULAR HGB CONC 31.7 g/dL (33.0-37.0); MEAN PLATELET VOLUME 8.4 fL (7.2-11.7); MONO # 0.9 K/uL (0.0-0.8); MONO % 7.1 % (0.0-10.0); RED CELL DISTRIBUTION WIDTH 17.3 % (11.5-14.5); WHITE BLOOD COUNT 12.8 K/uL (4.8-10.8)
[2017-06-03 06:28] LABS: CHLORIDE 104 mmol/L (98-107); SODIUM 136 mmol/L (132-148)
[2017-06-03 06:30] LABS: ALB/GLOB RATIO 1.5 (1.0-2.1); ALKALINE PHOSPHATASE 86 U/L (38-126); AST/SGOT 29 U/L (14-36); BILIRUBIN,TOTAL 0.2 mg/dL (0.2-1.3); BLOOD UREA NITROGEN 8 mg/dL (7-17); CARBON DIOXIDE 23 mmol/L (22-30); GFR AFRICAN-AMERICAN > 60; GLUCOSE,RANDOM 115 mg/dL (65-105); TOTAL PROTEIN 6.3 g/dL (6.3-8.3)
[2017-06-03 06:31] LABS: ALT/SGPT 24 U/L (9-52); CALCIUM 9.2 mg/dl (8.6-10.4); MAGNESIUM 1.6 mg/dL (1.6-2.3); PHOSPHOROUS 3.6 mg/dL (2.5-4.5)
[2017-06-03] MEDS: Mag&Al/Simet/Diphen/Lido 237 ML KIT PO SCH ×3 (07:56→16:23)
--- NOTE | 2017-06-03 12:55 | HP ---
HISTORY OF PRESENT ILLNESS: The patient is a 26-year-old female with history of schizophrenia, admitted to the hospital with insulin overdose for suicidal attempt. The patient came to the ER, evaluated, and was given glucose. She admission. PHYSICAL EXAMINATION: GENERAL: The patient is awake, alert, and oriented. VITAL SIGNS: Temperature is 98 and pulse is 92. HEENT: Within normal limits. NECK: Supple. CHEST: Symmetrical. HEART: Regular. ABDOMEN: Soft. EXTREMITIES: No edema. IMPRESSION: The patient suicidal attempt, hypoglycemia. Monitor blood sugars . Nabeel Neumann MD
[2017-06-03] MEDS ORDERED: (Novolin R) Insulin Human Regular 100 units/ml vial SC ONE (14:32)
[2017-06-03] MEDS ORDERED: (Novolin R) Insulin Human Regular 100 units/ml vial ONE (14:38)
--- NOTE | 2017-06-03 15:54 | CARD ---
APPROVED REPORT EKG Measurement Heart [id number] [place] [id number] <Conclusion> Sinus tachycardia Otherwise normal ECG
[2017-06-03] MEDS: (Novolin R) Insulin Human Regular 100 units/ml vial SC SCH ×2 (16:23→22:21)
[2017-06-03] MEDS ORDERED: (Novolin R) Insulin Human Regular 100 units/ml vial SC SCH (22:05)
[2017-06-04 06:28] LABS: BASO # 0.1 K/uL (0.0-0.2); BASO % 0.7 % (0.0-2.0); EOS # 0.2 K/uL (0.0-0.7); EOS % 1.7 % (0.0-4.0); HEMATOCRIT 34.2 % (34.0-47.0); LYMPH # 3.6 K/uL (1.0-4.3); LYMPH % 38.5 % (20.0-40.0); MEAN CELL VOLUME 76.8 fL (81.0-99.0); MEAN CORPUSCULAR HEMOGLOBIN 24.6 pg (27.0-31.0); MEAN PLATELET VOLUME 9.4 fL (7.2-11.7); MONO # 0.6 K/uL (0.0-0.8); MONO % 6.6 % (0.0-10.0); NRBC % 0.1 % (0.0-2.0); RED CELL DISTRIBUTION WIDTH 17.4 % (11.5-14.5); WHITE BLOOD COUNT 9.4 K/uL (4.8-10.8)
[2017-06-04 06:49] LABS: CHLORIDE 97 mmol/L (98-107)
[2017-06-04 06:50] LABS: SODIUM 130 mmol/L (132-148)
[2017-06-04 06:52] LABS: GFR AFRICAN-AMERICAN > 60
[2017-06-04 06:53] LABS: ALB/GLOB RATIO 1.7 (1.0-2.1); ALKALINE PHOSPHATASE 112 U/L (38-126); ALT/SGPT 29 U/L (9-52); AST/SGOT 24 U/L (14-36); BILIRUBIN,TOTAL 0.3 mg/dL (0.2-1.3); BLOOD UREA NITROGEN 13 mg/dL (7-17); CALCIUM 8.9 mg/dl (8.6-10.4); CARBON DIOXIDE 21 mmol/L (22-30); GLUCOSE,RANDOM 386 mg/dL (65-105); PHOSPHOROUS 3.6 mg/dL (2.5-4.5); TOTAL PROTEIN 5.9 g/dL (6.3-8.3)
[2017-06-04 06:54] LABS: MAGNESIUM 1.4 mg/dL (1.6-2.3)
--- NOTE | 2017-06-04 07:30 | CP.PCM.PN ---
Subjective - Date & Time of Evaluation Date of Evaluation: 06/04/17 Time of Evaluation: 09:06 - Subjective Subjective: Medicine Progress Note- Dr. Neumann's Service: Patient seen and examined at bedside this AM. Patient reports feeling well this AM. Denies chest pain, SOB, abdominal pain, nausea or vomiting. Patient reports no depression today. She would like to know where she is going from here. States she wants to go home. As per nursing, patient is eating full meals now. No other complaints at this time. Objective - Vital Signs/Intake and Output Vital Signs (last 24 hours): Temp Pulse Resp BP Pulse Ox 98 F 83 18 131/68 98 06/04/17 04:00 06/04/17 04:00 06/04/17 04:00 06/03/17 23:16 06/04/17 04:00 Intake and Output: 06/04/17 06/04/17 06:59 18:59 Intake Total 240 Output Total 0 Balance 240 - Medications Medications: Current Medications Benztropine Mesylate (Cogentin) 2 mg PO BID [facility] Last Admin: 06/03/17 17:30 Dose: 2 mg Citalopram Hydrobromide (Celexa) 40 mg PO DAILY [facility] Last Admin: 06/03/17 10:42 Dose: 40 mg Clonazepam (Klonopin) 1 mg PO BID [facility] Last Admin: 06/03/17 17:30 Dose: 1 mg Heparin Sodium (Porcine) (Heparin) 5,000 units SC Q8 [facility] Last Admin: 06/04/17 06:00 Dose: 5,000 units Insulin Human Regular (Novolin R) 0 unit SC ACHS [facility] PRN Reason: Protocol Pantoprazole Sodium (Protonix Ec Tab) 20 mg PO DAILY [facility] Perphenazine (Perphenazine) 4 mg PO DAILY [facility] Last Admin: 06/03/17 10:42 Dose: 4 mg Quetiapine Fumarate (Seroquel) 400 mg PO HS [facility] Last Admin: 06/03/17 21:48 Dose: 400 mg Saliva Substitute (First Magic Mouthwash) 5 ml PO TIDAC [facility] Last Admin: 06/03/17 16:23 Dose: 5 ml - Labs Labs: 06/04/17 06:19 06/04/17 06:19 - Constitutional Appears: No Acute Distress - Head Exam Head Exam: NORMAL INSPECTION, NORMOCEPHALIC - Eye Exam Eye Exam: EOMI, Normal appearance - Neck Exam Neck Exam: Full ROM, Normal Inspection - Respiratory Exam Respiratory Exam: Clear to Ausculation Bilateral, NORMAL BREATHING PATTERN - Cardiovascular Exam Cardiovascular Exam: REGULAR RHYTHM, +S1, +S2 - GI/Abdominal Exam GI & Abdominal Exam: Soft. absent: Distended, Tenderness - Extremities Exam Extremities Exam: Full ROM - Back Exam Back Exam: NORMAL INSPECTION - Neurological Exam Neurological Exam: Alert, Awake, Oriented x3 - Psychiatric Exam Psychiatric exam: Normal Affect, Normal Mood - Skin Skin Exam: Normal Color, Warm Assessment and Plan (1) Suicidal intent Assessment & Plan: Patient took 3 insulins on 06/01/17, Lantus 40units, regular insulin 80units, novolog 80units. Patient transferred out of ICU yesterday. Psych on board and following. Patient planned for transfer [place] [facility] [place] 1:1 psych observation. Status: Acute (2) Hypoglycemia Assessment & Plan: Sugars now >300, since patient eating full meals. Accuchecks ACHS Status: Acute (3) Schizophrenia Assessment & Plan: Schizoaffective disorder depressed type as per Psych. Dr. Gregg consulted- help appreciated. continue patient's medications Perphenazine 4 mg PO QDaily Celexa 40 mg PO Daily Seroquel 400 mg po QHS Psych called [facility] [place] commitment Status: Acute (4) Prophylactic measure Assessment & Plan: Heparin 5000 SC Q8H Protonix 20 mg PO daily All management as per Dr. Neumann. Status: Acute
[2017-06-04] MEDS: Mag&Al/Simet/Diphen/Lido 237 ML KIT PO SCH ×3 (08:00→18:08)
[2017-06-04] MEDS: Pantoprazole 20 mg EC Tab PO SCH (10:15)
[2017-06-04] MEDS: Magnesium Sulfate 1 gm in D5W 1 GM/100 ML BAG IVPB SCH ×2 (10:44→12:30)
--- NOTE | 2017-06-04 11:54 | PCM.PYCHPN ---
Psychiatric Progress Note - Psychiatric Progress Note Patient seen today, length of contact: 16 min Patient Chief Complaint: I want to leave. Problems Identified/Issues Discussed: Patient seen and evaluated, chart reviewed and discussed with the nurse. Patient remained irritable and agitated. She remained isolated, confined and withdrawn. Patient reports depressed mood and feelings of hopelessness and worthlessness. She is taking medication and denies any side effects. Supportive therapy and psychoeducation were given. She needs more time for stabilization. [facility] was called for involuntary commitment. Medication Change: No Medical Record Reviewed: Yes Mental Status Examination - Cognitive Function Orientation: Person, Place, Situation, Time Memory: Intact Attention: WNL Concentration: Poor Association: WNL Fund of Knowledge: Poor - Mood Mood: Depressed, Anxious - Affect Affect: Constricted, Blunted - Speech Speech: Soft - Formal Thought Process Formal Thought Process: Hallucinations, Delusions, Paranoia - Suicidal Ideation Suicidal Ideation: No - Homicidal Ideation Homicidal Ideation: No Goal/Treatment Plan - Goal/Treatment Plan Need for Continued Stay: Discharge may exacerbated symptoms, Severe functional impairment Progress Toward Problem(s) and Goals/Treatment Plan: Schizoaffective disorder depressed type continue patient's medications Perphenazine 4 mg PO QDaily Celexa 40 mg PO Daily Seroquel 400 mg po QHS called [facility] for involuntary commitment - Smoking Cessation Smoking Cessation Initiated: No
[2017-06-04] MEDS: (Novolin R) Insulin Human Regular 100 units/ml vial SC SCH ×3 (12:00→21:46)
--- NOTE | 2017-06-04 22:34 | CARD ---
APPROVED REPORT EKG Measurement Heart [id number] SD [id number] <Conclusion> Sinus tachycardia Otherwise normal ECG
[2017-06-05] MEDS ORDERED: (Novolin R) Insulin Human Regular 100 units/ml vial IV ONE (02:23)
[2017-06-05] MEDS ORDERED: (Novolin R) Insulin Human Regular 100 units/ml vial SC ONE (02:43)
[2017-06-05 06:23] LABS: BASO # 0.1 K/uL (0.0-0.2); BASO % 0.8 % (0.0-2.0); EOS # 0.2 K/uL (0.0-0.7); HEMATOCRIT 37.2 % (34.0-47.0); LYMPH # 4.1 K/uL (1.0-4.3); LYMPH % 36.9 % (20.0-40.0); MEAN CELL VOLUME 75.9 fL (81.0-99.0); MEAN CORPUSCULAR HGB CONC 31.6 g/dL (33.0-37.0); MEAN PLATELET VOLUME 8.8 fL (7.2-11.7); MONO # 0.7 K/uL (0.0-0.8); MONO % 6.7 % (0.0-10.0); RED CELL DISTRIBUTION WIDTH 17.2 % (11.5-14.5); WHITE BLOOD COUNT 11.2 K/uL (4.8-10.8)
[2017-06-05 06:25] LABS: CHLORIDE 94 mmol/L (98-107)
[2017-06-05 06:26] LABS: SODIUM 131 mmol/L (132-148)
[2017-06-05 06:28] LABS: ALB/GLOB RATIO 1.4 (1.0-2.1); AST/SGOT 19 U/L (14-36); BILIRUBIN,TOTAL 0.6 mg/dL (0.2-1.3); CARBON DIOXIDE 25 mmol/L (22-30); GFR AFRICAN-AMERICAN > 60; TOTAL PROTEIN 6.9 g/dL (6.3-8.3)
[2017-06-05 06:29] LABS: ALKALINE PHOSPHATASE 103 U/L (38-126); ALT/SGPT 24 U/L (9-52); BLOOD UREA NITROGEN 16 mg/dL (7-17); CALCIUM 9.8 mg/dl (8.6-10.4); GLUCOSE,RANDOM 338 mg/dL (65-105); MAGNESIUM 1.4 mg/dL (1.6-2.3)
[2017-06-05] MEDS: (Novolin R) Insulin Human Regular 100 units/ml vial SC SCH ×5 (08:03→22:20)
[2017-06-05] MEDS: Mag&Al/Simet/Diphen/Lido 237 ML KIT PO SCH ×3 (08:05→16:36)
[2017-06-05] MEDS ORDERED: Magnesium Oxide 400 mg Tab UD PO ONE (08:55)
[2017-06-05] MEDS ORDERED: Magnesium Sulfate 1 gm in D5W 1 GM/100 ML BAG IVPB SCH (09:00)
[2017-06-05] MEDS: Pantoprazole 20 mg EC Tab PO SCH (09:14)
--- NOTE | 2017-06-05 09:17 | CP.PCM.PN ---
Subjective - Date & Time of Evaluation Date of Evaluation: 06/05/17 Time of Evaluation: 09:15 - Subjective Subjective: PGY2 medicine progress note for Dr. Neumann: Patient seen and examined. Per nursing, no acute events overnight. Patient refusing IV insertion. Patient pending bed at [facility] [place] unit. When asked how patient is doing today, patient responds "I'm alive." Objective - Vital Signs/Intake and Output Vital Signs (last 24 hours): Temp Pulse Resp BP Pulse Ox 97.5 F L 98 H 18 129/84 100 06/05/17 08:00 06/05/17 05:13 06/05/17 05:13 06/05/17 05:13 06/05/17 05:13 Intake and Output: 06/05/17 06/05/17 06:59 18:59 Intake Total 1910 Output Total 2800 Balance -890 - Medications Medications: Current Medications Benztropine Mesylate (Cogentin) 2 mg PO BID [facility] Last Admin: 06/04/17 10:15 Dose: 2 mg Citalopram Hydrobromide (Celexa) 40 mg PO DAILY [facility] Last Admin: 06/04/17 10:15 Dose: 40 mg Clonazepam (Klonopin) 1 mg PO BID [facility] Last Admin: 06/04/17 18:08 Dose: 1 mg Heparin Sodium (Porcine) (Heparin) 5,000 units SC Q8 [facility] Last Admin: 06/05/17 05:07 Dose: 5,000 units Insulin Human Regular (Novolin R) 0 unit SC ACHS [facility] PRN Reason: Protocol Last Admin: 06/05/17 08:03 Dose: 10 unit Pantoprazole Sodium (Protonix Ec Tab) 20 mg PO DAILY [facility] Last Admin: 06/04/17 10:15 Dose: 20 mg Perphenazine (Perphenazine) 4 mg PO DAILY [facility] Last Admin: 06/04/17 10:15 Dose: 4 mg Quetiapine Fumarate (Seroquel) 400 mg PO HS [facility] Last Admin: 06/04/17 21:40 Dose: 400 mg Saliva Substitute (First Magic Mouthwash) 5 ml PO TIDAC [facility] Last Admin: 06/05/17 08:05 Dose: 5 ml - Labs Labs: 06/05/17 06:05 06/05/17 06:05 - Constitutional Appears: No Acute Distress - Head Exam Head Exam: ATRAUMATIC, NORMOCEPHALIC - Eye Exam Eye Exam: EOMI - ENT Exam ENT Exam: Mucous Membranes Moist - Respiratory Exam Respiratory Exam: Clear to Ausculation Bilateral, NORMAL BREATHING PATTERN - Cardiovascular Exam Cardiovascular Exam: +S1, +S2 - GI/Abdominal Exam GI & Abdominal Exam: Soft, Normal Bowel Sounds. absent: Guarding, Rigid, Tenderness - Extremities Exam Extremities Exam: Normal Inspection. absent: Pedal Edema - Neurological Exam Neurological Exam: Alert, Awake - Psychiatric Exam Psychiatric exam: Depressed - Skin Skin Exam: Dry, Warm Assessment and Plan - Assessment and Plan (Free Text) Assessment: (1) Suicidal intent Assessment & Plan: Patient took 3 insulins on 06/01/17, Lantus 40units, regular insulin 80units, novolog 80units. Patient transferred out of ICU Psych on board and following. Patient planned for transfer to [facility] [place] for 1:1 psych observation. Status: Acute (2) Hyperglycemia Assessment & Plan: Sugars now >300, since patient eating full meals. Accuchecks ACHS with high dose sliding scale re-starting patient's home medications lantus 11u HS and 15u AM Status: Acute (3) Hypoglycemia Assessment & Plan: resolved Sugars now >300, since patient eating full meals. Accuchecks ACHS Status: Acute (3) Schizophrenia Assessment & Plan: Schizoaffective disorder depressed type as per Psych. Dr. Gregg consulted- help appreciated. continue patient's medications Perphenazine 4 mg PO QDaily Celexa 40 mg PO Daily Seroquel 400 mg po QHS Psych called [facility] [place] for involuntary commitment, bed availability pending Status: Acute (4) Prophylactic measure Assessment & Plan: Heparin 5000 SC Q8H Protonix 20 mg PO daily 1:1 for safety Status: Acute All management as per Dr. Neumann.
[2017-06-05 20:31] VITALS: O2SAT 98
[2017-06-05] MEDS ORDERED: (Lantus) Insulin Glargine, Recombinant SC SCH (22:00)
--- NOTE | 2017-06-05 22:18 | CP.PCM.CON ---
History of Present Illness - History of Present Illness History of Present Illness: uncontrolled IDDM Past Patient History - Past Medical History & Family History Past Medical History?: Yes - Past Social History Smoking Status: Current Some Days Smoker - CARDIAC Hx Hypertension: Yes - ENDOCRINE/METABOLIC Hx Diabetes Mellitus Type 2: Yes - MUSCULOSKELETAL/RHEUMATOLOGICAL Hx Falls: No - PSYCHIATRIC Hx Substance Use: No - ANESTHESIA Hx Anesthesia: No Hx Anesthesia Reactions: No Hx Malignant Hyperthermia: No Has any member of the family had a problem w/ anesthesia?: No Meds Home Medications: Home Medication List Medication Instructions Recorded Confirmed Type Insulin Human Regular [Novolin R] 0 unit SC ACHS unit 06/04/17 Rx Allergies/Adverse Reactions: Allergies Allergy/AdvReac Type Severity Reaction Status Date / Time No Known Allergies Allergy Verified 06/02/17 14:08 - Medications Medications: Current Medications Benztropine Mesylate (Cogentin) 2 mg PO BID [facility] Last Admin: 06/05/17 17:16 Dose: 2 mg Citalopram Hydrobromide (Celexa) 40 mg PO DAILY [facility] Last Admin: 06/05/17 09:14 Dose: 40 mg Clonazepam (Klonopin) 1 mg PO BID [facility] Last Admin: 06/05/17 17:15 Dose: 1 mg Heparin Sodium (Porcine) (Heparin) 5,000 units SC Q8 [facility] Last Admin: 06/05/17 13:59 Dose: 5,000 units Insulin Glargine (Lantus) 11 unit SC HS [facility] Insulin Human Regular (Novolin R) [address] [facility] PRN Reason: Protocol Insulin Human Regular (Novolin R) 4 unit SC TIDCC [facility] Nicotine (Nicoderm Cq) 1 patch TD DAILY [facility] Last Admin: 06/05/17 16:34 Dose: 1 patch Pantoprazole Sodium (Protonix Ec Tab) 20 mg PO DAILY [facility] Last Admin: 06/05/17 09:14 Dose: 20 mg Perphenazine (Perphenazine) 4 mg PO DAILY [facility] Last Admin: 06/05/17 09:14 Dose: 4 mg Quetiapine Fumarate (Seroquel) 400 mg PO HS [facility] Last Admin: 06/04/17 21:40 Dose: 400 mg Saliva Substitute (First Magic Mouthwash) 10 ml PO TIDAC [facility] Last Admin: 06/05/17 16:36 Dose: Not Given Results - Vital Signs Recent Vital Signs: Last Vital Signs Temp 98.9 F 06/05/17 20:00 Pulse 94 H 06/05/17 11:43 Resp 18 06/05/17 20:00 BP 134/87 06/05/17 20:00 Pulse Ox 98 06/05/17 20:00 - Labs Result Diagrams: 06/05/17 06:05 06/05/17 06:05 Labs: Laboratory Results - last 24 hr 06/05/17 06/05/17 06/05/17 02:15 06:05 06:05 WBC 11.2 H RBC 4.90 Hgb 11.8 Hct 37.2 MCV 75.9 L MCH 24.0 L MCHC 31.6 L RDW 17.2 H Plt Count 327 MPV 8.8 Neut % (Auto) 53.6 Lymph % (Auto) 36.9 Tripp % (Auto) 6.7 Eos % (Auto) 2.0 Baso % (Auto) 0.8 Neut # 6.0 Lymph # 4.1 Tripp # 0.7 Eos # 0.2 Baso # 0.1 Sodium 131 L Potassium 4.0 Chloride 94 L Carbon Dioxide 25 Anion Gap 16 BUN 16 Creatinine 0.6 L Est GFR ( Amer) > 60 Est GFR (Non-Af Amer) > 60 POC Glucose (mg/dL) 425 H* Random Glucose 338 H Calcium 9.8 Magnesium 1.4 L Total Bilirubin 0.6 AST 19 ALT 24 Alkaline Phosphatase 103 Total Protein 6.9 Albumin 4.0 Globulin 2.9 Albumin/Globulin Ratio 1.4 06/05/17 06/05/17 06/05/17 07:45 11:15 16:07 WBC RBC Hgb Hct MCV MCH MCHC RDW Plt Count MPV Neut % (Auto) Lymph % (Auto) Tripp % (Auto) Eos % (Auto) Baso % (Auto) Neut # Lymph # Tripp # Eos # Baso # Sodium Potassium Chloride Carbon Dioxide Anion Gap BUN Creatinine Est GFR ( Amer) Est GFR (Non-Af Amer) POC Glucose (mg/dL) 351 H 233 H 328 H Random Glucose Calcium Magnesium Total Bilirubin AST ALT Alkaline Phosphatase Total Protein Albumin Globulin Albumin/Globulin Ratio 06/05/17 21:24 WBC RBC Hgb Hct MCV MCH MCHC RDW Plt Count MPV Neut % (Auto) Lymph % (Auto) Tripp % (Auto) Eos % (Auto) Baso % (Auto) Neut # Lymph # Tripp # Eos # Baso # Sodium Potassium Chloride Carbon Dioxide Anion Gap BUN Creatinine Est GFR ( Amer) Est GFR (Non-Af Amer) POC Glucose (mg/dL) 286 H Random Glucose Calcium Magnesium Total Bilirubin AST ALT Alkaline Phosphatase Total Protein Albumin Globulin Albumin/Globulin Ratio Assessment & Plan (1) Uncontrolled type 1 diabetes mellitus Assessment and Plan: Endocrine consult contacted today reason for consult: uncontrolled diabetes Ms. Salgado is 26 y/o known to endocrine , admitted on Saturday for sever hypoglycemia with altered mental status as a suicide attempt for personal problem with a male friend as per pt. took 250 units of Novolog & 180 units of lantus , as per pt. & mother @ bed side found unresponsive with glucose og 15 ! ! as per pt. has DM type I (-) neuropathy , (-) retinopathy , (-) nephropathy (-) CAD (-) PVD outpatient diabetes management regimen : lantus 11 units @ hs & 15 units am & humalog 6-8 units tid with meals & Metformin 1g po bid inpatient diabetes management regimen : regular insulin high dose scale blood glucose log :200-300 , once 400 NO hypoglycemia Allergy NKDA Past medical history : hyperprolactinemia , PCOS , hyperlipidemia Past surgical history : denies Psychiatry history : schezophrenia Social history : (+) smoking , denies ETOH use , illicit drug use Family history : mother with DM ROS: Constitutional: denies fever ,tiredness/weakness .HEENT: denies earache, change in voice .Respiratory: denies cough, sob . CVS :no chest pain, no palpitations . Abdomen : no abdominal pain, no nausea /vomiting , no change bowel movement . 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 Extremities : no edema , no tremors . Skin: no itching, no rash LMP 05/2017 Physical exam Well developed pleasant AAO x3 , ,NAD on 1:1 , mother by bed side VSS HEENT: norm cephalic, atraumatic , no lid lag , no exophthalmos NECK: supple, no palpable lymphadenopathy THYROID: no palpable thyromegaly , not tender CHEST: fair air entry, bilateral, CVS: S1,S2 ABDOMEN: bowel sound present, benign, obese, no wide purple striae , no bruises EXTREMITIES: no edema, clubbing or cyanosis, no palpable hand tremors Skin : acanthosis nigricans lab: urine (-) urine drug screen (-) , cmp wnl Assessment sever symptomatic hypoglycemia uncontrolled DM type 1 schezophrenia s/p suicide attempt obesity plan decrease regular insulin to low scale tid & hs start lantus 11 units @ hs tonight start regular insulin 4 units tid with meals if eat more than 60% of the meal psychiatry f/u as per mother awaiting transfer to [facility] psychiatry unit Thank you for allowing me to participate in the care of the patient, we will follow with you. Status: Acute (2) Hypoglycemia due to insulin Status: Acute (3) Schizophrenia Status: Acute - Date & Time Date: 06/05/17 Time: 08:35
[2017-06-06 07:53] LABS: BASO # 0.1 K/uL (0.0-0.2); BASO % 0.8 % (0.0-2.0); EOS # 0.2 K/uL (0.0-0.7); EOS % 1.5 % (0.0-4.0); HEMATOCRIT 39.1 % (34.0-47.0); LYMPH # 2.8 K/uL (1.0-4.3); MEAN CELL VOLUME 75.9 fL (81.0-99.0); MEAN CORPUSCULAR HGB CONC 31.6 g/dL (33.0-37.0); MEAN PLATELET VOLUME 8.4 fL (7.2-11.7); MONO # 0.9 K/uL (0.0-0.8); MONO % 6.9 % (0.0-10.0); NRBC % 0.1 % (0.0-2.0); RED CELL DISTRIBUTION WIDTH 17.6 % (11.5-14.5)
[2017-06-06 08:01] LABS: CHLORIDE 94 mmol/L (98-107); POTASSIUM 4.6 mmol/L (3.6-5.2); SODIUM 132 mmol/L (132-148)
[2017-06-06 08:03] LABS: ALB/GLOB RATIO 1.5 (1.0-2.1); ALKALINE PHOSPHATASE 109 U/L (38-126); AST/SGOT 24 U/L (14-36); BILIRUBIN,TOTAL 0.9 mg/dL (0.2-1.3); CARBON DIOXIDE 24 mmol/L (22-30); GFR AFRICAN-AMERICAN > 60; TOTAL PROTEIN 7.3 g/dL (6.3-8.3)
[2017-06-06 08:04] LABS: ALT/SGPT 35 U/L (9-52); BLOOD UREA NITROGEN 15 mg/dL (7-17); CALCIUM 9.7 mg/dl (8.6-10.4); MAGNESIUM 1.3 mg/dL (1.6-2.3)
[2017-06-06 08:13] LABS: GLUCOSE,RANDOM 445 mg/dL (65-105)
[2017-06-06] MEDS: (Novolin R) Insulin Human Regular 100 units/ml vial SC SCH ×8 (08:37→22:25)
[2017-06-06] MEDS: Mag&Al/Simet/Diphen/Lido 237 ML KIT PO SCH ×3 (08:42→16:45)
[2017-06-06] MEDS ORDERED: Magnesium Oxide 400 mg Tab UD PO ONE (09:01)
[2017-06-06] MEDS: Pantoprazole 20 mg EC Tab PO SCH (09:39)
[2017-06-06] MEDS ORDERED: (Lantus) Insulin Glargine, Recombinant SC SCH (10:00)
--- NOTE | 2017-06-06 10:07 | PCM.PYCHPN ---
Psychiatric Progress Note - Psychiatric Progress Note Patient seen today, length of contact: 16 min Patient Chief Complaint: I am not suicidal anymore.' Problems Identified/Issues Discussed: Patient seen and evaluated, chart reviewed and discussed with the nurse. Today pt appeared less depressed and she reports improvement in her feelings of hopelessness and worthlessness. Patient remained irritable and agitated. She remained isolated, confined and withdrawn. She understands that she is going to [facility] for involuntary sty. However, her blood glucose is very high. She is taking medication and denies any side effects. She is asking to go outside for smoking. Supportive therapy and psychoeducation were given. She needs more time for stabilization. Medication Change: Yes (increase Perphenazine, start zoloft) Medical Record Reviewed: Yes Mental Status Examination - Cognitive Function Orientation: Person, Place, Situation, Time Memory: Intact Attention: WNL Concentration: Poor Association: WNL Fund of Knowledge: Poor - Mood Mood: Depressed, Anxious - Affect Affect: Constricted, Blunted - Speech Speech: Soft - Formal Thought Process Formal Thought Process: Hallucinations, Delusions, Paranoia - Suicidal Ideation Suicidal Ideation: No - Homicidal Ideation Homicidal Ideation: No Goal/Treatment Plan - Goal/Treatment Plan Need for Continued Stay: Discharge may exacerbated symptoms, Severe functional impairment Progress Toward Problem(s) and Goals/Treatment Plan: Schizoaffective disorder depressed type Continue patient's medications Perphenazine 4 mg PO BID Celexa 40 mg PO Daily Zoloft 50 mg PO Daily Seroquel 400 mg po QHS Klonopin 1 mg pO BID Cogentin 1 mg PO BID called [facility] for involuntary commitment - Smoking Cessation Smoking Cessation Initiated: No
--- NOTE | 2017-06-06 11:25 | CP.PCM.PN ---
Subjective - Date & Time of Evaluation Date of Evaluation: 06/06/17 Time of Evaluation: 10:00 - Subjective Subjective: PGY2 medicine progress note for Dr. Neumann Patient seen and examined. Patient upset as to why she has to stay in hospital. Patient states only she can control her blood sugar at home. Reinforced to patient that she must stay until cleared by psychiatry. Objective - Vital Signs/Intake and Output Vital Signs (last 24 hours): Temp Pulse Resp BP Pulse Ox 97.7 F 87 18 134/87 98 06/06/17 08:00 06/06/17 00:00 06/06/17 00:00 06/05/17 20:00 06/05/17 20:00 Intake and Output: 06/06/17 06/06/17 06:59 18:59 Intake Total 400 Balance 400 - Medications Medications: Current Medications Benztropine Mesylate (Cogentin) 2 mg PO BID [facility] Last Admin: 06/06/17 09:40 Dose: 2 mg Citalopram Hydrobromide (Celexa) 40 mg PO DAILY [facility] Last Admin: 06/06/17 09:39 Dose: 40 mg Clonazepam (Klonopin) 1 mg PO BID [facility] Last Admin: 06/06/17 09:44 Dose: 1 mg Heparin Sodium (Porcine) (Heparin) 5,000 units SC Q8 [facility] Last Admin: 06/05/17 22:26 Dose: Not Given Insulin Glargine (Lantus) 11 unit SC HS [facility] Last Admin: 06/05/17 22:13 Dose: 11 u Insulin Human Regular (Novolin R) 0 unit SC ACHS [facility] PRN Reason: Protocol Last Admin: 06/06/17 08:37 Dose: 5 unit Insulin Human Regular (Novolin R) 4 unit SC TIDCC [facility] Last Admin: 06/06/17 08:38 Dose: 4 unit Nicotine (Nicoderm Cq) 1 patch TD DAILY [facility] Last Admin: 06/06/17 09:46 Dose: Not Given Pantoprazole Sodium (Protonix Ec Tab) 20 mg PO DAILY [facility] Last Admin: 06/06/17 09:39 Dose: 20 mg Perphenazine (Perphenazine) 4 mg PO BID [facility] Quetiapine Fumarate (Seroquel) 400 mg PO HS [facility] Last Admin: 06/05/17 22:15 Dose: 400 mg Saliva Substitute (First Magic Mouthwash) 10 ml PO TIDAC [facility] Last Admin: 06/06/17 08:42 Dose: 10 ml - Labs Labs: 06/06/17 07:48 06/06/17 07:48 - Constitutional Appears: No Acute Distress - Head Exam Head Exam: ATRAUMATIC, NORMOCEPHALIC - Eye Exam Eye Exam: EOMI - ENT Exam ENT Exam: Mucous Membranes Moist - Respiratory Exam Respiratory Exam: Clear to Ausculation Bilateral, NORMAL BREATHING PATTERN. absent: Respiratory Distress - Cardiovascular Exam Cardiovascular Exam: +S1, +S2 - GI/Abdominal Exam GI & Abdominal Exam: Soft, Normal Bowel Sounds. absent: Tenderness - Extremities Exam Extremities Exam: Normal Inspection - Neurological Exam Neurological Exam: Alert, Awake - Psychiatric Exam Psychiatric exam: Agitated - Skin Skin Exam: Dry, Warm Assessment and Plan - Assessment and Plan (Free Text) Assessment: (1) Suicidal intent Assessment & Plan: 06/06: spoke with [facility] [place] afternoon regarding why patient not screened yet / bed availability. [facility] [place] not have [place] yet, and they will not screen patient unless blood sugars better controlled. Patient asking to leave yesterday afternoon and explained to patient that she cannot leave. Patient was agitated and requesting to leave, stated she would refuse medication if not discharged. Discussed with patient and psychiatry that patient cannot leave. Diet compliance urged as well. Discussed with patient and her mother that outside food should not be allowed. Patient took 3 insulins on 06/01/17, Lantus 40units, regular insulin 80units, novolog 80units. Patient transferred out of ICU Psych on board and following. Patient planned for transfer [place] [facility] [place]:1 psych observation Status: Acute (2) Hyperglycemia Assessment & Plan: Sugars now >300, since patient eating full meals. Dr. Yung Rosales, insulation manager, consulted- help appreciated Dr. Rosales saw patient 06/05. 11u lantus given evening 06/05. 4u novolin R ordered TIDCC. sliding scale changed to low dose will discuss with Dr. Rosales whether we can increase insulin as sugars still high Status: Acute (3) Hypoglycemia Assessment & Plan: resolved Sugars now >300, since patient eating full meals. Accuchecks ACHS Status: Acute (3) Schizophrenia Assessment & Plan: Schizoaffective disorder depressed type as per Psych. Dr. Gregg consulted- help appreciated. continue patient's medications Perphenazine 4 mg PO QDaily Celexa 40 mg PO Daily Seroquel 400 mg po QHS Psych called [facility] [place] commitment, bed availability pending Status: Acute (4) Prophylactic measure Assessment & Plan: Heparin 5000 SC Q8H Protonix 20 mg PO daily 1:1 order renewed for safety nicotine patch ordered Status: Acute All management as per Dr. Neumann.
[2017-06-06] MEDS: (Lantus) Insulin Glargine, Recombinant SC SCH ×2 (21:00)
[2017-06-07] MEDS: (Novolin R) Insulin Human Regular 100 units/ml vial SC SCH ×4 (07:54→11:37)
[2017-06-07] MEDS: (Lantus) Insulin Glargine, Recombinant SC SCH (07:55)
[2017-06-07] MEDS: Mag&Al/Simet/Diphen/Lido 237 ML KIT PO SCH ×2 (08:16→11:40)
[2017-06-07] MEDS: Pantoprazole 20 mg EC Tab PO SCH (09:10)
[2017-06-07 10:11] VITALS: BP 133/82; PULSE 96; RESP 15
[2017-06-07 12:30] VITALS: TEMP 98.2
--- NOTE | 2017-06-07 13:16 | PCM.PYCHPN ---
Psychiatric Progress Note - Psychiatric Progress Note Patient seen today, length of contact: 16 min Patient Chief Complaint: I am not suicidal anymore.' Problems Identified/Issues Discussed: Patient seen and evaluated, chart reviewed and discussed with the nurse. Today pt appeared much better, she reports improvement in her mood and denies any suicidal ideation or homicidal ideation. She denies any auditory or visual hallucinations She is taking medication and denies any side effects. She is still asking to go outside for smoking. Supportive therapy and psychoeducation were given. Medication Change: Yes (increase Perphenazine, start zoloft) Medical Record Reviewed: Yes Mental Status Examination - Cognitive Function Orientation: Person, Place, Situation, Time Memory: Intact Attention: WNL Concentration: WNL Association: WNL Fund of Knowledge: WNL - Mood Mood: Neutral - Affect Affect: Constricted - Speech Speech: Soft - Formal Thought Process Formal Thought Process: No Impairment - Suicidal Ideation Suicidal Ideation: No - Homicidal Ideation Homicidal Ideation: No Goal/Treatment Plan - Goal/Treatment Plan Need for Continued Stay: Other Progress Toward Problem(s) and Goals/Treatment Plan: Schizoaffective disorder depressed type Continue patient's medications Perphenazine 4 mg PO BID Celexa 40 mg PO Daily Zoloft 50 mg PO Daily Seroquel 400 mg po QHS Klonopin 1 mg pO BID Cogentin 1 mg PO BID Patient psychiatrically stable to be discharged with a plan to follow-up with her psychiatrist. - Smoking Cessation Smoking Cessation Initiated: No
--- NOTE | 2017-06-07 13:42 | CP.PCM.PN ---
Subjective - Date & Time of Evaluation Date of Evaluation: 06/07/17 Time of Evaluation: 09:45 - Subjective Subjective: PGY2 medicine progress note for Dr. Neumann Patient seen and examined. Patient more conversant, states she feels well. Patient denies suicidal ideation. Objective - Vital Signs/Intake and Output Vital Signs (last 24 hours): Temp Pulse Resp BP Pulse Ox 98.2 F 96 H 15 133/82 98 06/07/17 12:00 06/07/17 08:00 06/07/17 08:00 06/07/17 08:00 06/07/17 08:00 Intake and Output: 06/07/17 06/07/17 06:59 18:59 Intake Total 750 400 Output Total 700 Balance 750 -300 - Medications Medications: Current Medications Benztropine Mesylate (Cogentin) 2 mg PO BID [facility] Last Admin: 06/07/17 09:07 Dose: 2 mg Citalopram Hydrobromide (Celexa) 40 mg PO DAILY [facility] Last Admin: 06/07/17 09:14 Dose: 40 mg Clonazepam (Klonopin) 1 mg PO BID [facility] Last Admin: 06/07/17 09:09 Dose: 1 mg Heparin Sodium (Porcine) (Heparin) 5,000 units SC Q8 [facility] Last Admin: 06/07/17 05:45 Dose: Not Given Insulin Glargine (Lantus) 10 unit SC Q12@0800,2000 [facility] Last Admin: 06/07/17 07:55 Dose: 10 units Insulin Human Regular (Novolin R) 0 unit SC ACHS [facility] PRN Reason: Protocol Last Admin: 06/07/17 11:37 Dose: 4 unit Insulin Human Regular (Novolin R) 6 unit SC TIDCC [facility] Last Admin: 06/07/17 11:36 Dose: 6 unit Nicotine (Nicoderm Cq) 1 patch TD DAILY [facility] Last Admin: 06/07/17 09:10 Dose: Not Given Pantoprazole Sodium (Protonix Ec Tab) 20 mg PO DAILY [facility] Last Admin: 06/07/17 09:10 Dose: 20 mg Perphenazine (Perphenazine) 4 mg PO BID [facility] Last Admin: 06/07/17 09:10 Dose: 4 mg Quetiapine Fumarate (Seroquel) 400 mg PO HS [facility] Last Admin: 06/06/17 22:23 Dose: 400 mg Saliva Substitute (First Magic Mouthwash) 10 ml PO TIDAC [facility] Last Admin: 06/07/17 11:40 Dose: 10 ml Sertraline HCl (Zoloft) 50 mg PO DAILY [facility] Last Admin: 06/07/17 09:11 Dose: 50 mg - Labs Labs: 06/06/17 07:48 06/06/17 07:48 - Constitutional Appears: Non-toxic, No Acute Distress - Head Exam Head Exam: ATRAUMATIC, NORMOCEPHALIC - Eye Exam Eye Exam: EOMI - ENT Exam ENT Exam: Mucous Membranes Moist - Respiratory Exam Respiratory Exam: Clear to Ausculation Bilateral, NORMAL BREATHING PATTERN. absent: Respiratory Distress - Cardiovascular Exam Cardiovascular Exam: +S1, +S2 - GI/Abdominal Exam GI & Abdominal Exam: Soft, Normal Bowel Sounds. absent: Tenderness - Extremities Exam Extremities Exam: Normal Inspection. absent: Pedal Edema - Neurological Exam Neurological Exam: Alert, Awake - Psychiatric Exam Psychiatric exam: Normal Affect. absent: Suicidal Ideation - Skin Skin Exam: Dry, Warm Assessment and Plan - Assessment and Plan (Free Text) Assessment: (1) Suicidal intent Assessment & Plan: 06/07: Discussed plan with psychiatrist Dr. Gregg. Patient cleared from psychiatry to go home with outpatient psychiatric follow up. Patient to be discharged with cogentin 2mg PO BID, celexa 40mg PO daily, perphenazine 4mg PO BID, seroquel 400mg PO HS, zoloft 50mg PO daily. 06/06: [place] [facility] [place] regarding why patient not screened yet / bed availability. [facility] [place] yet, and they will not screen patient unless blood sugars better controlled. Patient asking to leave yesterday afternoon and explained to patient that she cannot leave. Patient was agitated and requesting to leave, stated she would refuse medication if not discharged. Discussed with patient and psychiatry that patient cannot leave. Diet compliance urged as well. Discussed with patient and her mother that outside food should not be allowed. Patient took 3 insulins on 06/01/17, Lantus 40units, regular insulin 80units, novolog 80units. Patient transferred out of ICU Psych on board and following. Status: Acute (2) Hyperglycemia Assessment & Plan: 06/07: discussed plan with Dr. Rosales. lantus 10u SC at 8am and 8PM, 6 units novolin R TIDCC, sliding scale. Pt to follow up with Dr. Rosales on discharge. Sugars now >300, since patient eating full meals. Dr. Yung Rosales, bilingual elementary school teacher, consulted- help appreciated Dr. Rosales saw patient 06/05. 11u lantus given evening 06/05. 4u novolin R ordered TIDCC. sliding scale changed to low dose will discuss with Dr. Rosales whether we can increase insulin as sugars still high Status: Acute (3) Hypoglycemia Assessment & Plan: resolved Sugars now >300, since patient eating full meals. Accuchecks ACHS Status: Acute (3) Schizophrenia Assessment & Plan: 06/07: Patient cleared for discharge home per Dr. Gregg Schizoaffective disorder depressed type as per Psych. Dr. Gregg consulted- help appreciated. continue patient's medications increaseed Perphenazine 4 mg PO BID add zoloft 50mg PO daily Celexa 40 mg PO Daily Seroquel 400 mg po QHS Status: Acute (4) Prophylactic measure Assessment & Plan: Heparin 5000 SC Q8H Protonix 20 mg PO daily 1:1 order renewed for safety nicotine patch ordered Status: Acute All management as per Dr. Neumann. Patient is stable for discharge home per Dr. Neumann and Dr. Gregg. Patient is being discharged with the following prescriptions: cogentin 2mg by mouth twice a day, celexa 40mg by mouth daily, perphenazine 4mg by mouth twice a day, seroquel 400mg by mouth at bedtime, and zoloft 50mg by mouth daily. Patient should use the following insulin regimen: lantus 10 units subcutaneously at 8AM and at 8PM. Patient should use 6 units Novolin three times a day with meals, as well as sliding scale coverage. Patient will need to follow up with Dr. Neumann and Dr. Rosales within one week of discharge. Patient will also need to follow up with her home psychiatrist within one week of discharge. Patient should return to the ED if she has thoughts of hurting herself or others, or other alarming symptoms.
--- NOTE | 2017-06-10 22:45 | CARD ---
APPROVED REPORT EKG Measurement Heart [id number] <Conclusion> Normal sinus rhythm Normal ECG
== END 2017-06-07 15:31 | disposition home or self-care (01) | DRG 917 ==
LOC: C.ER 17:39 → C.9E 18:37 → C.9I 22:36
PROVIDERS: ADMIT Internal Medicine Pulmonary Disease; ATTEND Internal Medicine Pulmonary Disease
PROC: GZ56ZZZ Individual Psychotherapy, Supportive (ICD-10-PCS; principal; 2017-06-06)
DX: T38.3X2A Poisoning by insulin and oral hypoglycemic [antidiabetic] drugs, intentional self-harm, initial encounter (principal); E10.641 Type 1 diabetes mellitus with hypoglycemia with coma; R45.851 Suicidal ideations; F25.1 Schizoaffective disorder, depressive type; E10.65 Type 1 diabetes mellitus with hyperglycemia; I10 Essential (primary) hypertension; F41.9 Anxiety disorder, unspecified; F17.210 Nicotine dependence, cigarettes, uncomplicated; E87.6 Hypokalemia; E78.5 Hyperlipidemia, unspecified; E66.9 Obesity, unspecified; Z68.30 Body mass index [BMI] 30.0-30.9, adult